=== PATIENT | female | born 1980 | race Caucasian/White ===

== ENCOUNTER 2019-11-05 10:11 | Emergency (ER) | payer MEDICAID ==
[~2019-11-05] VITALS: Ht 165.1 cm; Wt 95.9 kg
[2019-11-05 10:17] VITALS: Ht 165.1 cm; Wt 95.9 kg
[2019-11-05] MEDS ORDERED: VOLTAREN75 MG PO (10:48)
[2019-11-05 11:32] VITALS: BP 130/80
== END 2019-11-05 11:35 | disposition home or self-care (01) ==
LOC: D.ER 10:11
DX: S99.921A Unspecified injury of right foot, initial encounter (principal); S93.514A Sprain of interphalangeal joint of right lesser toe(s), initial encounter; G62.9 Polyneuropathy, unspecified; W22.8XXA Striking against or struck by other objects, initial encounter; Y93.9 Activity, unspecified; Y92.9 Unspecified place or not applicable

== ENCOUNTER 2020-04-10 11:24 | Emergency (ER) | payer MEDICAID ==
[~2020-04-10] VITALS: Ht 165.1 cm; Wt 94.5 kg
[~2020-04-10 11:24] MED LIST: VOLTAREN75 MG PO
[2020-04-10 11:48] VITALS: Ht 165.1 cm; Wt 94.5 kg
[2020-04-10] MEDS ORDERED: NAPROSYN500 MG PO (13:09)
[2020-04-10] MEDS ORDERED: CLEOCIN HCL300 MG PO (13:09)
--- NOTE | 2020-04-10 13:18 | NUR ---
DR KAUR NOTIFIED AND REVIEWED PT'S BEHAVIOR AND ASSESSMENT. PT IS LOW RISK. RESOURCES GIVEN AND SHE VERBALIZES UNDERSTANDING.
[2020-04-10 14:19] VITALS: BP 119/83
== END 2020-04-10 14:19 | disposition home or self-care (01) ==
LOC: D.ER 11:24
DX: L03.115 Cellulitis of right lower limb (principal); M79.674 Pain in right toe(s); E11.9 Type 2 diabetes mellitus without complications

== ENCOUNTER → 2021-02-12 | Emergency (ER) | payer MEDICAID ==
[~2021-02-12] VITALS: Ht 165.1 cm; Wt 90.9 kg
[~2021-02-12] MED LIST changes: +CLEOCIN HCL300 MG PO; +COZAAR100 MG PO; +EFFEXOR XR75 MG PO; +FARXIGA10 MG PO; +NAPROSYN500 MG PO
[2021-02-12 12:38] VITALS: Ht 165.1 cm; Wt 90.9 kg
[2021-02-12 13:29] LABS: BASOPHILS 0.6 % (0-2); EOSINOPHILS 0 % (0-7); HEMATOCRIT 44.3 % (36.0-48.0); HEMOGLOBIN 14.8 g/dL (12-16); MCHC 33.3 g/dL (31.0-37.0); MCV 92.9 fL (80.0-100.0); MEAN PLATELET VOLUME 8.1 fL (7.4-10.4); NEUTROPHILS 70.4 % (40-80); RBC 4.76 10x6/uL (4.00-5.40); WBC 7.1 10x3/uL (4.8-10.8)
[2021-02-12 13:30] LABS: PLATELET COUNT 248 10x3/uL (130-400)
[2021-02-12 13:39] LABS: HCG URINE NEGATIVE (NEGATIVE)
[2021-02-12 13:41] LABS: UDS - AMPHET NEGATIVE QUAL (NEGATIVE); UDS - BARB NEGATIVE QUAL (NEGATIVE); UDS - BENZO NEGATIVE QUAL (NEGATIVE); UDS - COCAINE NEGATIVE QUAL (NEGATIVE); UDS - OPIATE NEGATIVE QUAL (NEGATIVE); UDS - PCP NEGATIVE QUAL (NEGATIVE); UDS - THC POSITIVE QUAL (NEGATIVE)
[2021-02-12 13:46] LABS: CALC OSMOLALITY 289 mosm/kg (275-300); CALCIUM 9.4 mg/dL (8.5-10.1); CARBON DIOXIDE 26.5 mmol/L (21.0-32.0); CHLORIDE - SERUM 104 mmol/L (98-107); CREATININE - SERUM 0.7 mg/dL (0.6-1.3); GLUCOSE 239 mg/dL (74-106); POTASSIUM - SERUM 4.2 mmol/L (3.5-5.1); SODIUM 141 mmol/L (136-145); UREA NITROGEN 15 mg/dL (7-18); eGFR NON AFRICAN AMERICAN > 90 mL/min (90-120)
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
[2021-02-12 13:52] LABS: ALKALINE PHOSPHATASE 71 U/L (30-120); ALT (SGPT) 33 U/L (10-68); BILIRUBIN - TOTAL 0.58 mg/dL (0.2-1.3); PROTEIN - SERUM 7.9 g/dL (6.4-8.2)
[2021-02-12 14:32] LABS: BILIRUBIN NEGATIVE (NEGATIVE); KETONE 1+ mg/dL (< 1+); NITRITE NEGATIVE (NEGATIVE); SQUAMOUS EPITHELIAL 3 HPF (0-4); UROBILINOGEN NORMAL mg/dL (< 2); WHITE CELLS - URINE 1 HPF (0-4)
[2021-02-12 19:18] LABS: SARS-CoV-2 ANTIGEN NEGATIVE- SARS-COV-2 (NEGATIVE)
[2021-02-12 23:01] VITALS: BP 103/61
== END | disposition home or self-care (01) ==
LOC: D.ER 12:24
PROVIDERS: Family Medicine
DX: R45.851 Suicidal ideations (principal); X78.1XXA Intentional self-harm by knife, initial encounter; E11.9 Type 2 diabetes mellitus without complications